=== PATIENT | male | born 1960 | race Caucasian/White ===

== ENCOUNTER 2018-06-06 06:05 | Emergency (ER) | payer OTHER ==
[2018-06-06] MEDS ORDERED: diPHENhydraMINE IV* 50 MG/ML 1 ml VIAL (BENADRYL) IV ONE (06:38)
[2018-06-06] MEDS ORDERED: methylPREDNISolone 125 MG* 2 ML VIAL IV ONE (06:38)
[2018-06-06] MEDS ORDERED: Famotidine IV* 10 MG/ML 2 ML (20 mg) IV SLOW PU ONE (06:38)
[2018-06-06] MEDS ORDERED: NS 0.9% 1000 ML* 1,000 ML IV ONE (06:44)
--- NOTE | 2018-06-06 06:50 | ED ---
Allergic Reaction/Systemic - HPI Summary HPI Summary: 58-year-old male presents with allergic reaction since last night. He states he was exposed to poison akhil on Sunday. He states he gets this hal of rash with poison akhil. He denies any respiratory symptoms. No chest pain or shortness breath. No sore throat. No tongue swelling. No bowel pain. No nausea no vomiting. States he also has a rash on his emmy. He states the rash is itchy. He did take some Benadryl at noon. He has history of allergen induced asthma. He denies any asthma symptoms at this time. he is not on an shruthi inhibitor. - History of Current Complaint Chief Complaint: EDAllergicReaction Time Seen by Provider: 06/06/18 06:38 Pain Intensity: 0 - Allergies/Home Medications Allergies/Adverse Reactions: Allergies Allergy/AdvReac Type Severity Reaction Status Date / Time No Known Allergies Allergy Verified 06/06/18 06:17 PMH/Surg Hx/FS Hx/Imm Hx Endocrine/Hematology History: Denies: Hx Anticoagulant Therapy Respiratory History: Reports: Hx Asthma Infectious Disease History: No Infectious Disease History: Denies: Traveled Outside the [place] in Last 30 Days - Family History Known Family History: Positive: Hypertension - Social History Alcohol Use: Occasionally Substance Use Type: Reports: None Smoking Status (MU): Never Smoked Tobacco Review of Systems Negative: Fever Positive: Other - facial swelling Negative: Chest Pain Negative: Shortness Of Breath All Other Systems Reviewed And Are Negative: Yes Physical Exam Triage Information Reviewed: Yes Vital Signs On Initial Exam: Initial Vitals Temp Pulse Resp BP Pulse Ox 98.4 F 71 18 157/94 98 06/06/18 06:15 06/06/18 06:15 06/06/18 06:15 06/06/18 06:15 06/06/18 06:15 Vital Signs Reviewed: Yes Appearance: Positive: Well-Appearing Skin: Positive: Warm, Dry Head/Face: Positive: Other - left facial swelling Eyes: Positive: Normal, EOMI, KIKA, Conjunctiva Clear ENT: Positive: Pharynx normal Respiratory/Lung Sounds: Positive: Clear to Auscultation, Breath Sounds Present Cardiovascular: Positive: Normal, RRR Abdomen Description: Positive: Nontender, Soft Bowel Sounds: Positive: Present Musculoskeletal: Positive: Normal Neurological: Positive: Normal Psychiatric: Positive: Normal Diagnostics - Vital Signs Vital Signs Temp Pulse Resp BP Pulse Ox 06/06/18 06:15 98.4 F 71 18 157/94 98 - Laboratory Lab Statement: Any lab studies that have been ordered have been reviewed, and results considered in the medical decision making process. Re-Evaluation - Re-Evaluation First Eval Re-Evaluation Time: 07:38 Change: Improved Comment: less sewlling, discussed give dose of epi but patient declined. lungs CTA and no emergent need for epi but would help with swelling more. discussed has potential to become periorbital cellulitis so if area becomes warm or develops fever to return Allergic Reaction Course/Dx - Course Course Of Treatment: 58-year-old male presents with allergic reaction since last night. He states he was exposed to poison akhil on Sunday. He states he gets this hal of rash with poison akhil. He denies any respiratory symptoms. No chest pain or shortness breath. No sore throat. No tongue swelling. No bowel pain. No nausea no vomiting. States he also has a rash on his emmy. He states the rash is itchy. He did take some Benadryl at noon. He has history of allergen induced asthma. He denies any asthma symptoms at this time. on exam has edema around left eye. Lungs clear to auscultation. Pharynx normal. gave Solu-Medrol Benadryl and Pepcid and less swelling. patient understand and agrees with plan. - Diagnoses Differential Diagnosis/HQI/PQRI: Positive: Anaphylaxis, Angioedema, Local Allergic Reaction Provider Diagnoses: Allergic reaction Discharge - Sign-Out/Discharge Documenting (check all that apply): Patient Departure - Discharge Plan Condition: Good Disposition: HOME Prescriptions: Famotidine TAB* [Pepcid 20 MG TAB*] 20 mg PO BID #16 tab hydrOXYzine HCL TAB* [Atarax 25 MG TAB*] 25 mg PO QID PRN #12 tab PRN Reason: Pain predniSONE TAB* [Deltasone TAB*] 50 mg PO DAILY #6 tab Patient Education Materials: Angioedema (ED) Forms: *Work Release Referrals: Derik Gonzalez MD [Primary Care Provider] - Additional Instructions: Take hydroxyzine every 6 hours during day, use benadryl at night every 6 hours Take Pepcid twice a day until swelling decreases Take steroid once a day for 6 days starting tomorrow Can place hydrocortisone for itching on hands place ice on eye Return to ED if shortness of breath, chest pain, or if develop any new or worsening symptoms - Billing Disposition and Condition Condition: GOOD Disposition: Home
[2018-06-06 08:21] VITALS: BP 142/91
== END 2018-06-06 08:20 | disposition home or self-care (01) ==
LOC: ED 06:05
DX: T78.40XA Allergy, unspecified, initial encounter (principal); X58.XXXA Exposure to other specified factors, initial encounter
CPT/HCPCS: 96374; 96375; 99283; J1200; J2930